=== PATIENT | female | born 1990 | race American Indian/Alaskan Native ===

== ENCOUNTER 2017-04-23 02:26 | Inpatient (IN) | payer MEDICAID ==
[2017-04-23] MEDS ORDERED: Oxytocin/Lactated Ringers 10 UNIT/1,000 ML BAG IV ONE (03:36)
[2017-04-23] MEDS ORDERED: Nalbuphine 20 MG/1 ML Amp IVPUSH PRN (03:36)
[2017-04-23] MEDS ORDERED: Sodium Chloride 0.9% 10 ML Syringe FLUSH PRN (03:36)
[2017-04-23] MEDS ORDERED: Lactated Ringers 1,000 ML IV SCH (03:45)
[2017-04-23] MEDS ORDERED: fentaNYL 100 MCG/2 ML SDV EPIDUR PRN (04:53)
[2017-04-23] MEDS ORDERED: ePHEDrine 50 MG/ML SDV IVPUSH PRN ×2 (04:53→09:07)
[2017-04-23] MEDS ORDERED: diphenhydrAMINE 50 MG/ML SDV IVPUSH PRN ×3 (04:53→09:07)
[2017-04-23] MEDS ORDERED: Bupivacaine/fentaNYL/NS 100 ML Bag EPIDUR SCH (05:00)
--- NOTE | 2017-04-23 05:30 | PCM.PREANE ---
Preanesthetic Assessment - Anesthesia/Transfusion/Family Hx Anesthesia History: No Prior Anesthesia Family History of Anesthesia Reaction: No Transfusion History: No Prior Transfusion(s) - Review of Systems General: No Symptoms Pulmonary: No Symptoms Cardiovascular: No Symptoms Gastrointestinal: Abdominal pain (contractions) Neurological: No Symptoms Other: Reports: None - Physical Assessment Pulse: 90 O2 Sat by Pulse Oximetry: 99 Respiratory Rate: 20 Blood Pressure: 127/62 Height: 5 ft 5 in Weight: 108.182 kg ASA Class: 2 Mental Status: Alert & Oriented x3 Airway Class: Mallampati = 2 Dentition: Reports: Broken Tooth/Teeth, Missing Tooth/Teeth, Caries (lose teeth) Thyro-Mental Finger Breadths: 3 Mouth Opening Finger Breadths: 3 ROM/Head Extension: Full Lungs: Clear to auscultation, Normal respiratory effort Cardiovascular: Regular Rate, Regular Rhythm - Lab Values: Laboratory Last Values WBC 8.99 K/mm3 (3.98-10.04) 04/23/17 03:53 RBC 4.07 M/mm3 (3.98-5.22) 04/23/17 03:53 Hgb 11.5 gm/L (11.2-15.7) 04/23/17 03:53 Hct 34.4 % (34.1-44.9) 04/23/17 03:53 MCV 84.5 fl (79.4-94.8) 04/23/17 03:53 MCH 28.3 pg (25.6-32.2) 04/23/17 03:53 MCHC 33.4 g/dl (32.2-35.5) 04/23/17 03:53 RDW Std Deviation 42.6 fL (36.4-46.3) 04/23/17 03:53 Plt Count 290 K/mm3 (182-369) 04/23/17 03:53 MPV 10.3 fl (9.4-12.3) 04/23/17 03:53 Neut % (Auto) 65.5 % (34.0-71.1) 04/23/17 03:53 Lymph % (Auto) 22.4 % (19.3-51.7) 04/23/17 03:53 [place] % (Auto) 9.2 % (4.7-12.5) 04/23/17 03:53 Eos % (Auto) 2.6 (0.7-5.8) 04/23/17 03:53 Baso % (Auto) 0.2 % (0.1-1.2) 04/23/17 03:53 Neut # (Auto) 5.89 K/mm3 (1.56-6.13) 04/23/17 03:53 Lymph # (Auto) 2.01 K/mm3 (1.18-3.74) 04/23/17 03:53 [place] # (Auto) 0.83 K/mm3 (0.24-0.36) H 04/23/17 03:53 Eos # (Auto) 0.23 K/mm3 (0.04-0.36) 04/23/17 03:53 Baso # (Auto) 0.02 K/mm3 (0.01-0.08) 04/23/17 03:53 Membrane Rupture Positive H 04/23/17 02:45 - Allergies Allergies/Adverse Reactions: Allergies Allergy/AdvReac Type Severity Reaction Status Date / Time No Known Allergies Allergy Verified 02/16/17 11:12 - Blood Blood Available: No - Acknowledgements Anesthesia Type Planned: Epidural Pt an Appropriate Candidate for the Planned Anesthesia: Yes Alternatives and Risks of Anesthesia Discussed w Pt/Guardian: Yes Pt/Guardian Understands and Agrees with Anesthesia Plan: Yes PreAnesthesia Questionnaire - Past Health History Medical/Surgical History: Denies Medical/Surgical History Cardiovascular History: Reports: None Respiratory History: Reports: None : 1 (39 and 5) Para: 0 - History Comment History Comment: vits - SUBSTANCE USE Smoking Status *Q: Former Smoker (quit a few months ago- doesn't know- less than a year) Tobacco Use Within Last Twelve Months: Cigarettes Second Hand Smoke Exposure: Yes Days Per Week of Alcohol Use: 0 Recreational Drug Use History: No - HOME MEDS Home Medications: Home Meds Cephalexin [Keflex] 500 mg PO TID #30 capsule 03/07/16 [Rx] - CURRENT (IN HOUSE) MEDS Current Meds: Current Medications Diphenhydramine HCl (Benadryl) 25 mg IVPUSH Q6H PRN PRN Reason: pruritis Ephedrine Sulfate (Ephedrine Sulfate) 5 mg IVPUSH ASDIRECTED PRN PRN Reason: Hypotension Fentanyl (Sublimaze) 100 mcg EPIDUR Q3H PRN PRN Reason: Pain Last Admin: 04/23/17 05:24 Dose: 100 mcg Fentanyl/Bupivacaine HCl (Fentanyl/Bupivacaine/Ns 2 Mcg-0.125% 100 Ml) 100 ml EPIDUR ASDIRECTED [facility] Last Admin: 04/23/17 05:23 Dose: 100 ml Lactated Ringer's (Ringers, Lactated) 1,000 mls @ 100 mls/hr IV ASDIRECTED [facility] Last Admin: 04/23/17 04:07 Dose: 100 mls/hr Oxytocin/Lactated Ringer's (Pitocin In Lr 10 Units/1,000 Ml) 10 unit in 1,000 mls @ 500 mls/hr IV ONETIME ONE PRN Reason: Protocol Stop: 04/23/17 05:35 Nalbuphine HCl (Nubain) 10 mg IVPUSH Q2H PRN PRN Reason: Pain (moderate 4-6) Sodium Chloride (Saline Flush) 10 ml FLUSH ASDIRECTED PRN PRN Reason: Keep Vein Open
[2017-04-23] MEDS ORDERED: Metoclopramide 10 MG/2 ML SDV ONE (06:36)
[2017-04-23] MEDS ORDERED: Citric Acid/Sodium Citrate Solution 30 ML Cup ONE (06:36)
[2017-04-23] MEDS ORDERED: Bupivacaine 0.5% 30 ML SDV ONE (06:40)
[2017-04-23] MEDS ORDERED: Citric Acid/Sodium Citrate Solution 30 ML Cup PO ONE (06:50)
[2017-04-23] MEDS ORDERED: Metoclopramide 10 MG/2 ML SDV IVPUSH ONE ×2 (06:50→07:09)
[2017-04-23] MEDS ORDERED: ceFAZolin 1 GM Vial ONE (07:13)
[2017-04-23] MEDS ORDERED: Oxytocin 10 Units/1 ML SDV ONE ×2 (07:27→07:36)
[2017-04-23] MEDS ORDERED: Lactated Ringers 1,000 ML ONE ×2 (07:27)
[2017-04-23] MEDS ORDERED: Morphine PF 10 MG/10 ML SDV ONE (07:29)
[2017-04-23] MEDS ORDERED: Ketorolac 30 MG/ML SDV ONE (07:35)
--- NOTE | 2017-04-23 07:54 | PCM.POSTAN ---
POST ANESTHESIA ASSESSMENT - MENTAL STATUS Mental Status: alert, oriented - VITAL SIGNS Pulse Rate: 83 SaO2: 97 Resp Rate: 20 Blood Pressure: 121/61 Temperature: 36.7 C - RESPIRATORY Respiratory Status: respiratory rate WNL, airway patent, O2 saturation stable, supplemental oxygen - CARDIOVASCULAR CV Status: pulse rate WNL, blood pressure stable - GASTROINTESTINAL GI Status: no symptoms - PAIN Pain Score: 0 - POST OP HYDRATION Hydration Status: adequate & stable - OBSERVATIONS Free Text/Narrative:: no anesthesia complications noted
[2017-04-23] MEDS ORDERED: Bupivacaine 0.25% 10 ML SDV ONE (08:00)
--- NOTE | 2017-04-23 08:41 | PCM.OPNOTE ---
- General Post-Op/Procedure Note Date of Surgery/Procedure: 04/23/17 Operative Procedure(s): primary section Findings: viable female, 8/9 APGARS, normal uterus tubes and ovaries, 0713, 7#6oz Pre Op Diagnosis: non reassuring status Primary Surgeon: Macy Juares Cow Tester: Maki Johnson Output, Urine Amount: 90 EBL in mLs: 410 Complications: None Condition: Good
[2017-04-23] MEDS ORDERED: Docusate Sodium 100 MG Cap PO PRN (09:07)
[2017-04-23] MEDS ORDERED: Naloxone 0.4 MG/ML SDV IVPUSH PRN (09:07)
[2017-04-23] MEDS ORDERED: Dextrose 5%-0.45% NaCl 1,000 ML IV SCH (09:07)
[2017-04-23] MEDS ORDERED: Dextrose 5%-Lactated Ringers 1,000 ML IV SCH (09:07)
[2017-04-23] MEDS ORDERED: Lanolin 100% Cream 7 GM Tube TOP PRN (09:07)
[2017-04-23] MEDS: Ketorolac 30 MG/ML SDV IVPUSH SCH ×2 (13:42→19:25)
--- NOTE | 2017-04-23 18:34 | PCM.LDHP ---
L&D History of Present Illness - General Date of Service: 04/23/17 Admit Problem/Dx: Admission Diagnosis/Problem Admission Diagnosis/Problem - History of Present Illness Introduction:: Called at 0615 to be notified about patient's non-reassuring heart tones and her presence on the floor. Came promptly to evaluate this 26 year old who had SROM at about midnight. Epidural in place Pain Score: 5 - Related Data Allergies/Adverse Reactions: Allergies Allergy/AdvReac Type Severity Reaction Status Date / Time No Known Allergies Allergy Verified 02/16/17 11:12 Home Medications: Home Meds Cephalexin [Keflex] 500 mg PO TID #30 capsule 03/07/16 [Rx] Past Medical History - Past Health History Medical/Surgical History: Denies Medical/Surgical History Cardiovascular History: Reports: None Respiratory History: Reports: None - History Comment History Comment: vits Social & Family History - Tobacco Use Smoking Status *Q: Former Smoker Years of Tobacco use: 10 Packs/Tins Daily: 1 Used Tobacco, but Quit: Yes Month Tobacco Last Used: January Second Hand Smoke Exposure: No - Caffeine Use Caffeine Use: Reports: Soda - Alcohol Use Days Per Week of Alcohol Use: 0 - Recreational Drug Use Recreational Drug Use: Yes Drug Use in Last 12 Months: Yes Recreational Drug Type: Reports: Marijuana/Hashish Recreational Drug Use Frequency: Binges H&P Review of Systems - Review of Systems: Review Of Systems: See Below General: Reports: No Symptoms HEENT: Reports: No Symptoms Pulmonary: Reports: No Symptoms Cardiovascular: Reports: No Symptoms Gastrointestinal: Reports: No Symptoms Genitourinary: Reports: No Symptoms Musculoskeletal: Reports: No Symptoms Skin: Reports: No Symptoms Psychiatric: Reports: No Symptoms Neurological: Reports: No Symptoms Hematologic/Lymphatic: Reports: No Symptoms Immunologic: Reports: No Symptoms L&D Exam - Exam Exam: See Below - Vital Signs Vital Signs: Last Vital Signs Temp 36.8 C 04/23/17 13:18 Pulse 81 04/23/17 13:18 Resp 14 04/23/17 13:18 BP 135/80 04/23/17 13:18 Pulse Ox 96 04/23/17 13:18 Weight: 116.12 kg - OB Specific Contraction Intensity: Moderate Movement: Active Heart Tones: Present Heart Tones per Min: 155 Heart Rate (FHR) Variability: Moderate (6-25 bmp) Presentation: Vertex Estimated Weight: 7# - Razo Score Razo Score Cervix Position: Midposition Razo Score Consistency: Medium Razo Score Effacement: 31-50% Razo Score Dilation: 3-4 cm Razo Score 's Station: -2 Razo Score Total: 6 - Exam General: Alert, Oriented Neck: Supple Cardiovascular: Regular Rate Genitourinary: Normal external exam Back Exam: Normal Inspection, Full Range of Motion Extremities: Normal Inspection Skin: Warm, Dry Neurological: Cranial Nerves Intact - Patient Data Lab Results Last 24 hrs: Laboratory Results - last 24 hr 04/23/17 04/23/17 04/23/17 Range/Units 02:45 03:53 03:53 WBC 8.99 (3.98-10.04) K/mm3 RBC 4.07 (3.98-5.22) M/mm3 Hgb 11.5 (11.2-15.7) gm/L Hct 34.4 (34.1-44.9) % MCV 84.5 (79.4-94.8) fl MCH 28.3 (25.6-32.2) pg MCHC 33.4 (32.2-35.5) g/dl RDW Std Deviation 42.6 (36.4-46.3) fL Plt Count 290 (182-369) K/mm3 MPV 10.3 (9.4-12.3) fl Neut % (Auto) 65.5 (34.0-71.1) % Lymph % (Auto) 22.4 (19.3-51.7) % [place] % (Auto) 9.2 (4.7-12.5) % Eos % (Auto) 2.6 (0.7-5.8) Baso % (Auto) 0.2 (0.1-1.2) % Neut # (Auto) 5.89 (1.56-6.13) K/mm3 Lymph # (Auto) 2.01 (1.18-3.74) K/mm3 [place] # (Auto) 0.83 H (0.24-0.36) K/mm3 Eos # (Auto) 0.23 (0.04-0.36) K/mm3 Baso # (Auto) 0.02 (0.01-0.08) K/mm3 Membrane Rupture Positive H Urine Opiates Screen (NEGATIVE) Ur Buprenorphine Scrn (NEGATIVE) Ur Oxycodone Screen (NEGATIVE) Urine Methadone Screen (NEGATIVE) Ur Propoxyphene Screen (NEGATIVE) Ur Barbiturates Screen (NEGATIVE) Ur Tricyclics Screen (NEGATIVE) Ur Phencyclidine Scrn (NEGATIVE) Ur Amphetamine Screen (NEGATIVE) U Methamphetamines Scrn (NEGATIVE) U Benzodiazepines Scrn (NEGATIVE) U Cocaine Metab Screen (NEGATIVE) U Marijuana (THC) Screen (NEGATIVE) MRSA (PCR) Blood Type O POSITIVE Gel Antibody Screen Negative 04/23/17 04/23/17 Range/Units 06:30 10:02 WBC (3.98-10.04) K/mm3 RBC (3.98-5.22) M/mm3 Hgb (11.2-15.7) gm/L Hct (34.1-44.9) % MCV (79.4-94.8) fl MCH (25.6-32.2) pg MCHC (32.2-35.5) g/dl RDW Std Deviation (36.4-46.3) fL Plt Count (182-369) K/mm3 MPV (9.4-12.3) fl Neut % (Auto) (34.0-71.1) % Lymph % (Auto) (19.3-51.7) % [place] % (Auto) (4.7-12.5) % Eos % (Auto) (0.7-5.8) Baso % (Auto) (0.1-1.2) % Neut # (Auto) (1.56-6.13) K/mm3 Lymph # (Auto) (1.18-3.74) K/mm3 [place] # (Auto) (0.24-0.36) K/mm3 Eos # (Auto) (0.04-0.36) K/mm3 Baso # (Auto) (0.01-0.08) K/mm3 Membrane Rupture Urine Opiates Screen Presumptive positive H (NEGATIVE) Ur Buprenorphine Scrn Negative (NEGATIVE) Ur Oxycodone Screen Presumptive positive H (NEGATIVE) Urine Methadone Screen Negative (NEGATIVE) Ur Propoxyphene Screen Negative (NEGATIVE) Ur Barbiturates Screen Negative (NEGATIVE) Ur Tricyclics Screen Negative (NEGATIVE) Ur Phencyclidine Scrn Negative (NEGATIVE) Ur Amphetamine Screen Negative (NEGATIVE) U Methamphetamines Scrn Negative (NEGATIVE) U Benzodiazepines Scrn Negative (NEGATIVE) U Cocaine Metab Screen Negative (NEGATIVE) U Marijuana (THC) Screen Negative (NEGATIVE) MRSA (PCR) Negative Blood Type Gel Antibody Screen Result Diagrams: 04/23/17 03:53 Problem List Initiated/Reviewed/Updated: Yes Orders Last 24hrs: Active Orders 24 hr Category Date Time Status Communication Order [RC] PER UNIT ROUTINE Care 04/23/17 09:07 Active Communication Order [RC] PER UNIT ROUTINE Care 04/23/17 09:07 Active Communication Order [RC] PER UNIT ROUTINE Care 04/23/17 09:07 Active Cooling Warming Measures [RC] ASDIRECTED Care 04/23/17 07:51 Inactive Heart Tones [RC] ASDIRECTED Care 04/23/17 03:36 Inactive Oxygen Therapy [RC] ASDIRECTED Care 04/23/17 07:51 Inactive Peripheral IV Care [RC] . DIRECTED Care 04/23/17 03:36 Inactive Pulse Oximetry [RC] ASDIRECTED Care 04/23/17 07:51 Inactive Urinary Catheter Removal [RC] Per Unit Routine Care 04/24/17 08:43 Active Vital Signs [RC] PER UNIT ROUTINE Care 04/23/17 03:36 Inactive Vital Signs [RC] Q15M Care 04/23/17 07:51 Inactive Vital Signs [RC] Q4HR Care 04/23/17 09:07 Active Regular Diet [DIET] Diet 04/23/17 Lunch Active CBC WITH AUTO DIFF [HEME] AM Lab 04/24/17 05:11 Ordered Acetaminophen/oxyCODONE [Percocet 325-5 MG] Med 04/23/17 09:07 Active 1 tab PO Q4H PRN Dextrose 5%-0.45% NaCl [Dextrose 5%-1/2 NS] 1,000 ml Med 04/23/17 09:07 Active IV ASDIRECTED Docusate Sodium [Colace] Med 04/23/17 09:07 Active 100 mg PO Q12H PRN Ketorolac [Toradol] Med 04/23/17 13:30 Active 30 mg IVPUSH Q6H Lanolin [Lansinoh HPA] Med 04/23/17 09:07 Active See Dose Instructions TOP ASDIRECTED PRN Naloxone [Narcan] Med 04/23/17 09:07 Active 0.1 mg IVPUSH SEECOMMENT PRN diphenhydrAMINE [Benadryl] Med 04/23/17 09:07 Active 25 mg IVPUSH Q6H PRN ePHEDrine [ePHEDrine Sulfate] Med 04/23/17 09:07 Active 5 mg IVPUSH SEECOMMENT PRN Assess Lochia [WOMSER] Per Unit Routine Oth 04/23/17 09:07 Ordered Assess Uterine Involution [WOMSER] Per Unit Routine Oth 04/23/17 09:07 Ordered Medication Administration Instruction [OM.PC] Routine Oth 04/23/17 09:07 Ordered Resuscitation Status Routine Resus Stat 04/23/17 03:36 Ordered Medication Orders Diphenhydramine HCl (Benadryl) 25 mg IVPUSH Q6H PRN PRN Reason: Itching or Nausea Docusate Sodium (Colace) 100 mg PO Q12H PRN PRN Reason: Constipation Emollient Ointment (Lansinoh Hpa) 0 gm TOP ASDIRECTED PRN PRN Reason: Sore Nipples Ephedrine Sulfate (Ephedrine Sulfate) 5 mg IVPUSH SEECOMMENT PRN PRN Reason: Other Dextrose/Sodium Chloride (Dextrose 5%-1/2 Ns) 1,000 mls @ 125 mls/hr IV ASDIRECTED [facility] Ketorolac Tromethamine (Toradol) 30 mg IVPUSH Q6H [facility] Stop: 04/24/17 01:31 Last Admin: 04/23/17 13:42 Dose: 30 mg Naloxone HCl (Narcan) 0.1 mg IVPUSH SEECOMMENT PRN PRN Reason: Respiratory Depression Oxycodone/Acetaminophen (Percocet 325-5 Mg) 1 tab PO Q4H PRN PRN Reason: Pain (moderate 4-6) Assessment/Plan Comment:: Term SROM. NRFHT. Proceed to primary section. RBA discussed, patient voices understanding and wishes to proceed.
[2017-04-24] MEDS: Acetaminophen/oxyCODONE 325-5 MG Tab PO PRN ×5 (00:21→22:45)
[2017-04-24] MEDS: Ketorolac 30 MG/ML SDV IVPUSH SCH (02:10)
[2017-04-24] MEDS ORDERED: Ibuprofen 600 MG Tab PO PRN (09:57)
--- NOTE | 2017-04-24 14:40 | PCM48HPAN ---
Post Anesthesia Note - EVALUATION WITHIN 48HRS OF ANESTHETIC Vital Signs in Normal Range: Yes Patient Participated in Evaluation: Yes Respiratory Function Stable: Yes Airway Patent: Yes Cardiovascular Function Stable: Yes Hydration Status Stable: Yes Pain Control Satisfactory: Yes Nausea and Vomiting Control Satisfactory: Yes Mental Status Recovered: Yes - COMMENTS/OBSERVATIONS Free Text/Narrative:: pt states "it took and long time for my one side to get numb, but it was fine."
--- NOTE | 2017-04-24 14:55 | PCM.PNPP ---
- General Info Date of Service: 04/24/17 Functional Status: Reports: pain controlled - Review of Systems General: Reports: No Symptoms HEENT: Reports: no symptoms Pulmonary: Reports: no symptoms Cardiovascular: Reports: No Symptoms Gastrointestinal: Reports: No symptoms Genitourinary: Reports: no symptoms Musculoskeletal: Reports: no symptoms Skin: Reports: no symptoms Neurological: Reports: No Symptoms Psychiatric: Reports: no symptoms - General Info Date of Service: 04/24/17 - Patient Data Vital Signs - most recent: Last Vital Signs Temp 36.8 C 04/24/17 11:46 Pulse 79 04/24/17 11:46 Resp 17 04/24/17 11:46 BP 131/77 04/24/17 11:46 Pulse Ox 96 04/24/17 11:46 Weight - most recent: 116.12 kg I&O - last 24 hours: Intake & Output 04/23/17 04/24/17 04/24/17 22:59 06:59 14:59 Intake Total 0 900 1000 Output Total 300 1000 1700 Balance -300 -100 -700 Lab Results - last 24 hrs: Laboratory Results - last 24 hr 04/24/17 Range/Units 06:21 WBC 9.44 (3.98-10.04) K/mm3 RBC 3.82 L (3.98-5.22) M/mm3 Hgb 10.8 L (11.2-15.7) gm/L Hct 32.7 L (34.1-44.9) % MCV 85.6 (79.4-94.8) fl MCH 28.3 (25.6-32.2) pg MCHC 33.0 (32.2-35.5) g/dl RDW Std Deviation 43.3 (36.4-46.3) fL Plt Count 268 (182-369) K/mm3 MPV 10.4 (9.4-12.3) fl Neut % (Auto) 66.9 (34.0-71.1) % Lymph % (Auto) 22.5 (19.3-51.7) % [place] % (Auto) 8.2 (4.7-12.5) % Eos % (Auto) 2.1 (0.7-5.8) Baso % (Auto) 0.2 (0.1-1.2) % Neut # (Auto) 6.32 H (1.56-6.13) K/mm3 Lymph # (Auto) 2.12 (1.18-3.74) K/mm3 [place] # (Auto) 0.77 H (0.24-0.36) K/mm3 Eos # (Auto) 0.20 (0.04-0.36) K/mm3 Baso # (Auto) 0.02 (0.01-0.08) K/mm3 Med Orders - Current: Current Medications Diphenhydramine HCl (Benadryl) 25 mg IVPUSH Q6H PRN PRN Reason: Itching or Nausea Docusate Sodium (Colace) 100 mg PO Q12H PRN PRN Reason: Constipation Emollient Ointment (Lansinoh Hpa) 0 gm TOP ASDIRECTED PRN PRN Reason: Sore Nipples Last Admin: 04/24/17 09:06 Dose: 1 applic Ephedrine Sulfate (Ephedrine Sulfate) 5 mg IVPUSH SEECOMMENT PRN PRN Reason: Other Dextrose/Sodium Chloride (Dextrose 5%-1/2 Ns) 1,000 mls @ 125 mls/hr IV ASDIRECTED [facility] Last Admin: 04/24/17 00:22 Dose: 125 mls/hr Ibuprofen (Motrin) 600 mg PO Q6H PRN PRN Reason: Pain Last Admin: 04/24/17 10:14 Dose: 600 mg Naloxone HCl (Narcan) 0.1 mg IVPUSH SEECOMMENT PRN PRN Reason: Respiratory Depression Oxycodone/Acetaminophen (Percocet 325-5 Mg) 1 tab PO Q4H PRN PRN Reason: Pain (moderate 4-6) Last Admin: 04/24/17 13:56 Dose: 1 tab Discontinued Medications Bupivacaine HCl (Marcaine 0.5%) Confirm Administered Dose 30 ml .ROUTE .STK-MED ONE Stop: 04/23/17 06:41 Last Admin: 04/23/17 07:07 Dose: 20 ml Bupivacaine HCl (Sensorcaine-Mpf 0.25%) 10 ml .ROUTE .STK-MED ONE Stop: 04/23/17 08:01 Cefazolin Sodium (Ancef) Confirm Administered Dose 2 gm .ROUTE .STK-MED ONE Stop: 04/23/17 07:14 Citric Acid/Sodium Citrate (Bicitra Solution) Confirm Administered Dose 30 ml .ROUTE .STK-MED ONE Stop: 04/23/17 06:37 Last Admin: 04/23/17 07:11 Dose: Not Given Citric Acid/Sodium Citrate (Bicitra Solution) 30 ml PO ONETIME ONE Stop: 04/23/17 06:51 Last Admin: 04/23/17 06:50 Dose: 30 ml Diphenhydramine HCl (Benadryl) 25 mg IVPUSH Q6H PRN PRN Reason: pruritis Diphenhydramine HCl (Benadryl) 25 mg IVPUSH Q6H PRN PRN Reason: Itching Ephedrine Sulfate (Ephedrine Sulfate) 5 mg IVPUSH ASDIRECTED PRN PRN Reason: Hypotension Fentanyl (Sublimaze) 100 mcg EPIDUR Q3H PRN PRN Reason: Pain Last Admin: 04/23/17 05:24 Dose: 100 mcg Fentanyl/Bupivacaine HCl (Fentanyl/Bupivacaine/Ns 2 Mcg-0.125% 100 Ml) 100 ml EPIDUR ASDIRECTED [facility] Last Admin: 04/23/17 05:23 Dose: 100 ml Lactated Ringer's (Ringers, Lactated) 1,000 mls @ 100 mls/hr IV ASDIRECTED [facility] Last Admin: 04/23/17 04:07 Dose: 100 mls/hr Oxytocin/Lactated Ringer's (Pitocin In Lr 10 Units/1,000 Ml) 10 unit in 1,000 mls @ 500 mls/hr IV ONETIME ONE PRN Reason: Protocol Stop: 04/23/17 05:35 Lactated Ringer's (Ringers, Lactated) Confirm Administered Dose 1,000 mls @ as directed .ROUTE .STK-MED ONE Stop: 04/23/17 07:28 Lactated Ringer's (Ringers, Lactated) Confirm Administered Dose 1,000 mls @ as directed .ROUTE .STK-MED ONE Stop: 04/23/17 07:28 Dextrose/Lactated Ringer's (Dextrose 5%-Lactated Ringers) 1,000 mls @ 125 mls/ hr IV ASDIRECTED [facility] Stop: 04/23/17 17:06 Last Admin: 04/23/17 13:43 Dose: 125 mls/hr Ketorolac Tromethamine (Toradol) Confirm Administered Dose 30 mg .ROUTE .STK- MED ONE Stop: 04/23/17 07:36 Ketorolac Tromethamine (Toradol) 30 mg IVPUSH Q6H [facility] Stop: 04/24/17 01:31 Last Admin: 04/24/17 02:10 Dose: 30 mg Metoclopramide HCl (Reglan) Confirm Administered Dose 10 mg .ROUTE .STK-MED ONE Stop: 04/23/17 06:37 Last Admin: 04/23/17 07:11 Dose: Not Given Metoclopramide HCl (Reglan) 10 mg IVPUSH ONETIME ONE Stop: 04/23/17 07:10 Last Admin: 04/23/17 06:50 Dose: 10 mg Morphine Sulfate (Duramorph Pf) Confirm Administered Dose 10 mg .ROUTE .STK-MED ONE Stop: 04/23/17 07:30 Nalbuphine HCl (Nubain) 10 mg IVPUSH Q2H PRN PRN Reason: Pain (moderate 4-6) Oxytocin (Pitocin) Confirm Administered Dose 10 unit .ROUTE .STK-MED ONE Stop: 04/23/17 07:28 Oxytocin (Pitocin) Confirm Administered Dose 10 unit .ROUTE .STK-MED ONE Stop: 04/23/17 07:37 Sodium Chloride (Saline Flush) 10 ml FLUSH ASDIRECTED PRN PRN Reason: Keep Vein Open - Interaction Disposition, : [place] at Bedside Support Person: Mother - Recovery Exam Fundal Tone: Firm Fundal Level: 1 Fingerbreadths Below Umbilicus Fundal Placement: Midline Lochia Amount: Small Lochia Color: Rubra/Red Perineum Description: Intact, Minimal Bruising/Swelling Episiotomy/Laceration: None Bladder Status: Voiding Urinary Elimination: Not Voiding - Exam General: alert, oriented HEENT: Pupils equal Neck: supple Lungs: Clear to auscultation, Normal respiratory effort Cardiovascular: Regular Rate, Regular Rhythm GI/Abdominal Exam: Normal Bowel Sounds, Soft, Non-Tender, No Organomegaly, No Distention, No Abnormal Bruit, No Mass Extremities: Normal Inspection, Normal Range of Motion, Non-Tender, No Pedal Edema, Normal Capillary Refill Skin: warm, dry, intact Wound/Incisions: healing well Neurological: no new focal deficit Psy/Mental Status: alert, normal affect, normal mood - Problem List Review Problem List Initiated/Reviewed/Updated: Yes - My Orders Last 24 Hours: My Active Orders 04/24/17 08:43 Urinary Catheter Removal [RC] Per Unit Routine 04/24/17 09:57 Ibuprofen [Motrin] 600 mg PO Q6H PRN - Assessment Assessment:: POD1. Doing well. No issues. - Plan Plan:: POD1 Doing great. Routine care.
[2017-04-25] MEDS: Acetaminophen/oxyCODONE 325-5 MG Tab PO PRN (04:20)
--- NOTE | 2017-04-25 06:50 | PCM.DCSUM1 ---
Discharge Summary - Hospital Course Brief History: Admitted for SROM. Had NRFHT. Primary section. - Discharge Data Discharge Date: 04/25/17 Discharge Disposition: Home, Self-Care 01 Condition: Good - Patient Summary/Data Operative Procedure(s) Performed: primary section Hospital Course: Unremarkable course. - Patient Instructions Diet: Regular Diet as Tolerated Activity: No Strenuous Activities Driving: May Drive Today Showering/Bathing: May Shower Notify Provider of: Fever, Increased Pain, Swelling and Redness, Drainage, Nausea and/or Vomiting - Discharge Plan Home Medications: Home Meds Cephalexin [Keflex] 500 mg PO TID #30 capsule 03/07/16 [Rx] Patient Handouts: Smoking Cessation, Tips for Success, [id number], Smoking Hazards, Vaginal Delivery, Care After Referrals: Macy Juares MD [Physician] - - Discharge Summary/Plan Comment DC Time >30 min.: No - General Info Date of Service: 04/25/17 Functional Status: Reports: pain controlled - Review of Systems General: Reports: No Symptoms HEENT: Reports: no symptoms Pulmonary: Reports: no symptoms Cardiovascular: Reports: No Symptoms Gastrointestinal: Reports: No symptoms Genitourinary: Reports: no symptoms Musculoskeletal: Reports: no symptoms Skin: Reports: no symptoms Neurological: Reports: No Symptoms Psychiatric: Reports: no symptoms - Patient Data Vitals - Most Recent: Last Vital Signs Temp 36.6 C 04/25/17 05:53 Pulse 69 04/25/17 05:53 Resp 12 04/25/17 05:53 BP 121/82 04/25/17 05:53 Pulse Ox 98 04/25/17 05:53 Weight - Most Recent: 116.12 kg I&O - Last 24 hours: Intake & Output 04/24/17 04/24/17 04/25/17 14:59 22:59 06:59 Intake Total 1000 0 Output Total 1700 Balance -700 0 Med Orders - Current: Current Medications Diphenhydramine HCl (Benadryl) 25 mg IVPUSH Q6H PRN PRN Reason: Itching or Nausea Docusate Sodium (Colace) 100 mg PO Q12H PRN PRN Reason: Constipation Emollient Ointment (Lansinoh Hpa) 0 gm TOP ASDIRECTED PRN PRN Reason: Sore Nipples Last Admin: 04/24/17 09:06 Dose: 1 applic Ephedrine Sulfate (Ephedrine Sulfate) 5 mg IVPUSH SEECOMMENT PRN PRN Reason: Other Dextrose/Sodium Chloride (Dextrose 5%-1/2 Ns) 1,000 mls @ 125 mls/hr IV ASDIRECTED [facility]IE Last Admin: 04/24/17 00:22 Dose: 125 mls/hr Ibuprofen (Motrin) 600 mg PO Q6H PRN PRN Reason: Pain Last Admin: 04/24/17 10:14 Dose: 600 mg Naloxone HCl (Narcan) 0.1 mg IVPUSH SEECOMMENT PRN PRN Reason: Respiratory Depression Oxycodone/Acetaminophen (Percocet 325-5 Mg) 1 tab PO Q4H PRN PRN Reason: Pain (moderate 4-6) Last Admin: 04/25/17 04:20 Dose: 1 tab Discontinued Medications Bupivacaine HCl (Marcaine 0.5%) Confirm Administered Dose 30 ml .ROUTE .STK-MED ONE Stop: 04/23/17 06:41 Last Admin: 04/23/17 07:07 Dose: 20 ml Bupivacaine HCl (Sensorcaine-Mpf 0.25%) 10 ml .ROUTE .STK-MED ONE Stop: 04/23/17 08:01 Cefazolin Sodium (Ancef) Confirm Administered Dose 2 gm .ROUTE .STK-MED ONE Stop: 04/23/17 07:14 Citric Acid/Sodium Citrate (Bicitra Solution) Confirm Administered Dose 30 ml .ROUTE .STK-MED ONE Stop: 04/23/17 06:37 Last Admin: 04/23/17 07:11 Dose: Not Given Citric Acid/Sodium Citrate (Bicitra Solution) 30 ml PO ONETIME ONE Stop: 04/23/17 06:51 Last Admin: 04/23/17 06:50 Dose: 30 ml Diphenhydramine HCl (Benadryl) 25 mg IVPUSH Q6H PRN PRN Reason: pruritis Diphenhydramine HCl (Benadryl) 25 mg IVPUSH Q6H PRN PRN Reason: Itching Ephedrine Sulfate (Ephedrine Sulfate) 5 mg IVPUSH ASDIRECTED PRN PRN Reason: Hypotension Fentanyl (Sublimaze) 100 mcg EPIDUR Q3H PRN PRN Reason: Pain Last Admin: 04/23/17 05:24 Dose: 100 mcg Fentanyl/Bupivacaine HCl (Fentanyl/Bupivacaine/Ns 2 Mcg-0.125% 100 Ml) 100 ml EPIDUR ASDIRECTED [facility] Last Admin: 04/23/17 05:23 Dose: 100 ml Lactated Ringer's (Ringers, Lactated) 1,000 mls @ 100 mls[facility] Last Admin: 04/23/17 04:07 Dose: 100 mls/hr Oxytocin/Lactated Ringer's (Pitocin In Lr 10 Units/1,000 Ml) 10 unit in 1,000 mls @ 500 mls/hr IV ONETIME ONE PRN Reason: Protocol Stop: 04/23/17 05:35 Lactated Ringer's (Ringers, Lactated) Confirm Administered Dose 1,000 mls @ as directed .ROUTE .STK-MED ONE Stop: 04/23/17 07:28 Lactated Ringer's (Ringers, Lactated) Confirm Administered Dose 1,000 mls @ as directed .ROUTE .STK-MED ONE Stop: 04/23/17 07:28 Dextrose/Lactated Ringer's (Dextrose 5%-Lactated Ringers) 1,000 mls @ 125 mls/ hr IV ASDIRECTED [facility] Stop: 04/23/17 17:06 Last Admin: 04/23/17 13:43 Dose: 125 mls/hr Ketorolac Tromethamine (Toradol) Confirm Administered Dose 30 mg .ROUTE .STK- MED ONE Stop: 04/23/17 07:36 Ketorolac Tromethamine (Toradol) 30 mg IVPUSH Q6H [facility] Stop: 04/24/17 01:31 Last Admin: 04/24/17 02:10 Dose: 30 mg Metoclopramide HCl (Reglan) Confirm Administered Dose 10 mg .ROUTE .STK-MED ONE Stop: 04/23/17 06:37 Last Admin: 04/23/17 07:11 Dose: Not Given Metoclopramide HCl (Reglan) 10 mg IVPUSH ONETIME ONE Stop: 04/23/17 07:10 Last Admin: 04/23/17 06:50 Dose: 10 mg Morphine Sulfate (Duramorph Pf) Confirm Administered Dose 10 mg .ROUTE .STK-MED ONE Stop: 04/23/17 07:30 Nalbuphine HCl (Nubain) 10 mg IVPUSH Q2H PRN PRN Reason: Pain (moderate 4-6) Oxytocin (Pitocin) Confirm Administered Dose 10 unit .ROUTE .STK-MED ONE Stop: 04/23/17 07:28 Oxytocin (Pitocin) Confirm Administered Dose 10 unit .ROUTE .STK-MED ONE Stop: 04/23/17 07:37 Sodium Chloride (Saline Flush) 10 ml FLUSH ASDIRECTED PRN PRN Reason: Keep Vein Open - Exam General: Reports: alert, oriented HEENT: Reports: Pupils equal, Pupils reactive, EOMI, Mucous membr. moist/pink Neck: Reports: supple Lungs: Reports: Clear to auscultation, Normal respiratory effort Cardiovascular: Reports: Regular Rate, Regular Rhythm GI/Abdominal Exam: Normal Bowel Sounds, Soft, Non-Tender, No Organomegaly, No Distention, No Abnormal Bruit, No Mass, Pelvis Stable (Female) Exam: Normal External Exam, Normal Speculum Exam, Normal Bimanual Exam Back Exam: Reports: Normal Inspection, Full Range of Motion Extremities: Normal Inspection, Normal Range of Motion, Non-Tender, No Pedal Edema, Normal Capillary Refill Skin: Reports: warm, dry, intact Wound/Incisions: Reports: healing well Neurological: Reports: no new focal deficit Psy/Mental Status: Reports: alert, normal affect, normal mood *Q Meaningful Use (DIS) - VTE *Q VTE Criteria *Q: - Stroke *Q Stroke Criteria *Q: - AMI *Q AMI Criteria *Q:
[2017-04-25 14:50] VITALS: BP 145/88
== END 2017-04-25 12:45 | disposition home or self-care (01) | DRG 766 ==
LOC: JD.OBCHECK 02:26 → JD.OB 02:26 → JD.OBCHECK 03:53 → JD.OB 03:54 → OBSVTOIN 07:13 → JD.OB 07:13
PROVIDERS: ADMIT Obstetrics & Gynecology; ATTEND Obstetrics & Gynecology
PROC: 10D00Z1 Extraction of Products of Conception, Low, Open Approach (ICD-10-PCS; principal; 2017-04-23)
PROC: 00HU33Z Insertion of Infusion Device into Spinal Canal, Percutaneous Approach (ICD-10-PCS; 2017-04-23)
PROC: 3E0R3CZ (ICD-10-PCS; 2017-04-23)
DX: O76 Abnormality in fetal heart rate and rhythm complicating labor and delivery (principal); O42.02 Full-term premature rupture of membranes, onset of labor within 24 hours of rupture; Z3A.40 40 weeks gestation of pregnancy; Z37.0 Single live birth; Z87.891 Personal history of nicotine dependence
CPT/HCPCS: 01967; 01968; 36415; 80306; 84112; 85025; 86850; 86900; 86901; 87641; 94762; A9270-GY; J0690; J1885; J2270; J2590; J2765; J3010; J7042; J7120

== ENCOUNTER 2022-11-29 00:50 | Emergency (ER) | payer MEDICAID ==
[2022-11-29] MEDS ORDERED: Sodium Chloride 0.9% 10 ML Syringe FLUSH PRN (00:58)
[2022-11-29] MEDS ORDERED: Famotidine 20 MG/2 ML SDV IVPUSH ONE (00:59)
[2022-11-29] MEDS ORDERED: Iopamidol 612 MG/ML 100 ML Bottle IVPUSH ONE (01:34)
[2022-11-29 01:37] LABS: ESTIMATED GFR 101 mL/min (>60)
[2022-11-29 01:47] VITALS: BP 148/78; PULSE 82
== END 2022-11-29 03:25 | disposition home or self-care (01) ==
LOC: JD.ED 00:50
DX: K29.00 Acute gastritis without bleeding (principal)
CPT/HCPCS: 36415; 74177; 80053; 81001; 83690; 84703; 85025; 96374; 99285; J3490; Q9967; 99284

== ENCOUNTER 2024-07-21 18:34 | Emergency (ER) | payer MEDICAID, OTHER ==
[2024-07-21 18:43] VITALS: BP 149/76; PULSE 77
[2024-07-21 19:26] LABS: APPEARANCE,URINE CLEAR (Clear); BILIRUBIN,URINE NEGATIVE (Negative); COLOR,URINE YELLOW (Yellow); GLUCOSE,URINE NEGATIVE (Negative); KETONES,URINE TRACE (Negative); LEUKOCYTE ESTERASE,URINE NEGATIVE (Negative); NITRITE,URINE NEGATIVE (Negative); OCCULT BLOOD,URINE NEGATIVE (Negative); PROTEIN,URINE NEGATIVE (Negative)
[2024-07-21 19:27] LABS: BASOPHILS ABSOLUTE AUTO 0.1 K/mm3 (0.0-0.2); BASOPHILS PERCENT AUTO 0.7 % (0.0-1.0); EOSINOPHILS ABSOLUTE AUTO 0.4 K/mm3 (0.0-0.4); EOSINOPHILS PERCENT AUTO 4.9 % (0.0-6.0); HEMATOCRIT 41.3 % (37.0-47.0); HEMOGLOBIN 13.7 gm/dl (12.0-16.0); IMMATURE GRAN ABSOLUTE AUTO 0.02 K/mm3 (0.00-0.05); IMMATURE GRAN PERCENT AUTO 0.2 % (0.0-0.4); LYMPHOCYTES ABSOLUTE AUTO 3.2 K/mm3 (1.0-4.8); LYMPHOCYTES PERCENT AUTO 36.1 % (24.0-44.0); MEAN CORPUSCULAR HEMOGLOBIN 28.6 pg (28.0-32.0); MEAN CORPUSCULAR HGB CONC 33.2 g/dl (32.0-36.0); MEAN CORPUSCULAR VOLUME 86.2 fl (83.0-99.0); MEAN PLATELET VOLUME 9.4 fl (9.4-12.3); MONOCYTES ABSOLUTE AUTO 0.6 K/mm3 (0.0-0.8); MONOCYTES PERCENT AUTO 6.3 % (0.0-8.0); NEUTROPHILS ABSOLUTE AUTO 4.5 K/mm3 (1.8-7.7); NEUTROPHILS PERCENT AUTO 51.8 % (41.0-71.0); PLATELET COUNT,PLT 354 K/mm3 (150-400); RED BLOOD CELL COUNT 4.79 M/mm3 (4.10-5.30); WHITE BLOOD CELL COUNT,WBC 8.76 K/mm3 (3.9-11.3)
[2024-07-21 19:49] LABS: PROTHROMBIN TIME 9.6 SECONDS (9.7-12.0)
[2024-07-21 19:50] LABS: PTT,PARTIAL THROMBOPLSTIN TIME 24.7 SECONDS (21.7-31.4)
[2024-07-21 19:51] LABS: INR < 0.93
[2024-07-21 20:04] LABS: ALBUMIN 3.3 g/dl (3.4-5.0); ANION GAP 13.9 (5-15); BILIRUBIN TOTAL 0.2 mg/dL (0.2-1.0); EST CRCL DRUG DOSING (CG) 72.68 mL/min; MAGNESIUM 1.9 mg/dL (1.8-2.4); PROTEIN TOTAL,TP 6.7 g/dl (6.4-8.2); TSH 3.162 uIU/mL (0.358-3.74)
[2024-07-21 20:10] LABS: POTASSIUM,K 3.9 mEq/L (3.5-5.1)
[2024-07-21] MEDS: Iopamidol 755 Mg/ML 100 ML Bottle IVPUSH ONE (20:47)
[2024-07-21] MEDS: Sodium Chloride 0.9% 10 ML Syringe FLUSH ONE (20:47)
[2024-07-21] MEDS: Sodium Chloride 0.9% 100 ML IV SCH (20:47)
[2024-07-24 04:47] LABS: INTACT PTH 50 pg/mL (15-65)
== END 2024-07-21 23:11 | disposition home or self-care (01) ==
LOC: JD.ED 18:34
DX: R20.1 Hypoesthesia of skin (principal)
CPT/HCPCS: 36415; 70450; 70496; 80053; 81003; 83735; 83970; 84443; 84703; 85025; 85610; 85730; 99284; J3490; Q9967; 99282